=== PATIENT | female | born 1960 | race Caucasian/White ===

== ENCOUNTER 2017-01-25 00:11 | Inpatient (IN) | END 2017-01-27 15:10 | disposition home or self-care (01) | DRG 603 | DX: L03.116 Cellulitis of left lower limb (principal); E11.65 Type 2 diabetes mellitus with hyperglycemia; B37.3 Candidiasis of vulva and vagina; E87.6 Hypokalemia; Z86.718 Personal history of other venous thrombosis and embolism ==

== ENCOUNTER 2017-06-29 23:53 | Emergency (ER) | END 2017-06-30 07:54 | disposition home or self-care (01) ==

== ENCOUNTER 2017-07-21 23:46 | Emergency (ER) | END 2017-07-22 04:14 | disposition home or self-care (01) ==

== ENCOUNTER 2018-12-23 21:22 | Emergency (ER) | payer OTHER ==
[~2018-12-23] VITALS: Ht 160 cm; Wt 89.7 kg
[~2018-12-23 21:22] MED LIST: ACET-141 PO; ACET500C5 PO; ALBU18HF INHALATION; AMOX1TAB10 PO; ASPI-817 PO; GABA100C14 PO; IBUP-1542 PO; LORA10TA3 PO; METO-448 PO; MONT10TA24 PO; OSEL75CA23 PO; SULF1TAB31 PO; TRIA15CR55 TOP
[2018-12-23 21:43] VITALS: Ht 160 cm; Wt 89.7 kg
[2018-12-23] MEDS ORDERED: ALBUTEROL 0.083% (NEB) 2.5 MG/3 ML AMP HHN STA (23:56)
[2018-12-24] MEDS ORDERED: TRIAMCINOLONE ACET 0.1% 15 GM CR TOP ONE
[2018-12-24 04:58] VITALS: BP 130/67; PULSE 97; RESP 18
== END 2018-12-24 05:08 | disposition home or self-care (01) ==
LOC: FTE 21:22
DX: J45.901 Unspecified asthma with (acute) exacerbation (principal); I87.2 Venous insufficiency (chronic) (peripheral); R35.0 Frequency of micturition
CPT/HCPCS: 81003; 87086; 94664; Z7502; Z7610

== ENCOUNTER 2018-12-30 02:23 | Emergency (ER) | payer OTHER ==
[~2018-12-30] VITALS: Ht 162.6 cm; Wt 80.0 kg
[2018-12-30 04:08] VITALS: Ht 162.6 cm; Wt 80.0 kg
[2018-12-30] MEDS ORDERED: HYDROCODONE/APAP (5/325) TAB PO ONE (04:30)
[2018-12-30] MEDS ORDERED: IBUPROFEN 800 MG TAB PO ONE (05:30)
[2018-12-30] MEDS ORDERED: ASPIRIN (EC) 81 MG TAB PO ONE (10:30)
[2018-12-30 10:38] VITALS: BP 132/69; PULSE 90; RESP 18
== END 2018-12-30 10:44 | disposition home or self-care (01) ==
LOC: FTE 02:23
DX: S80.212A Abrasion, left knee, initial encounter (principal); S20.212A Contusion of left front wall of thorax, initial encounter; E03.9 Hypothyroidism, unspecified; W01.0XXA Fall on same level from slipping, tripping and stumbling without subsequent striking against object, initial encounter; Y92.410 Unspecified street and highway as the place of occurrence of the external cause
CPT/HCPCS: 71100; 73562; Z7502; Z7610

== ENCOUNTER 2019-01-19 04:12 | Emergency (ER) | payer OTHER ==
[~2019-01-19] VITALS: Ht 160 cm; Wt 87.0 kg
[~2019-01-19 04:12] MED LIST changes: +CALC500T11 PO; +FAMO-142 PO; +INSU100I33 SQ; +MECL12.574 PO; +ONDA8TAB14 PO; +[UNRECOGNIZED DRUG - CODE] PO; +[UNRECOGNIZED DRUG - CODE] PO
[2019-01-19 04:19] VITALS: Ht 160 cm; Wt 87.0 kg
[2019-01-19 08:00] VITALS: BP 126/67; PULSE 86; RESP 18
== END 2019-01-19 09:04 | disposition home or self-care (01) ==
LOC: E/R 04:12
DX: R42 Dizziness and giddiness (principal); R53.1 Weakness; E10.9 Type 1 diabetes mellitus without complications; Z79.4 Long term (current) use of insulin
CPT/HCPCS: 80048; 82962; 84484; 85025; 93005; Z7502